=== PATIENT | male | born 1990 | race Caucasian/White ===

== ENCOUNTER 2020-05-18 15:24 | Outpatient (REF) | payer BC, SELFPAY | END 2020-05-18 15:25 | disposition home or self-care (01) | LOC: HO.LNP 15:24 | PROVIDERS: Visit Provider Internal Medicine | DX: R50.9 Fever, unspecified (principal); R05 Cough; Z20.828 Contact with and (suspected) exposure to other viral communicable diseases | CPT/HCPCS: 87635 ==

== ENCOUNTER 2021-08-14 12:51 | Outpatient (REF) | payer BC, SELFPAY ==
[2021-08-14 16:09] LABS: Influenza A PCR NEGATIVE (Negative); Influenza B PCR NEGATIVE (Negative); Resp Syncy Virus RNA Qual PCR NEGATIVE (Negative); SARS COV2 PCR INHOUSE NEGATIVE (Negative)
== END 2021-08-14 12:52 | disposition home or self-care (01) ==
LOC: HO.10HDLNP 12:51
PROVIDERS: Visit Provider Internal Medicine
DX: Z20.822 Contact with and (suspected) exposure to COVID-19 (principal)
CPT/HCPCS: 0241U